=== PATIENT | male | born 1975 | race Caucasian/White ===

== ENCOUNTER 2018-03-15 02:02 | Inpatient (IN) | payer MEDICAID, OTHER ==
[~2018-03-15] VITALS: Ht 182.9 cm; Wt 79.0 kg
[2018-03-15] VITALS (8 sets, daily range): BP systolic 109–119; BP diastolic 62–79
[~2018-03-15 02:02] MED LIST: MIRT30 PO
[2018-03-15] MEDS ORDERED: GABA-531 PO (03:18)
[2018-03-15] MEDS ORDERED: RIVA20TA PO (03:18)
[2018-03-15] MEDS ORDERED: CITA-106 PO (03:18)
[2018-03-15 03:27] LABS: BASOPHILS % (AUTO) 0.5 % (0.0-2.0); EOSINOPHILS % (AUTO) 1.3 % (1.0-6.0); HEMATOCRIT 42.1 % (41-53); LYMPHOCYTES # (AUTO) 1.5 K/uL (1.0-4.8); LYMPHOCYTES % (AUTO) 20.2 % (22.0-44.0); MEAN CORPUSCULAR HGB CONC 36.7 G/dL (31.0-37.0); MEAN CORPUSCULAR VOLUME 90 fL (80-100); MONOCYTES # (AUTO) 0.5 K/uL (0.1-1.0); MONOCYTES % (AUTO) 6.6 % (2.0-9.0); NEUTROPHILS # (AUTO) 5.4 K/uL (1.8-7.7); NEUTROPHILS % (AUTO) 71.4 % (40.0-70.0); PLATELET COUNT (AUTO) 240 K/uL (150-450); RED BLOOD CELL COUNT(AUTO) 4.69 MIL/uL (4.50-5.90); RED CELL DISTRIBUTION WIDTH 13.3 % (11.5-14.5)
[2018-03-15 03:34] LABS: ANION GAP 6 mmol/L (8-16); CALCIUM, TOTAL 8.6 mg/dL (8.8-10.5); CARBON DIOXIDE 31 mmol/L (22-29); CHLORIDE 95 mmol/L (98-107); CREATININE 0.98 mg/dL (0.60-1.30); GLOMERULAR FILTR. RATE CALC > 60 mL/min (>60); GLUCOSE,RANDOM 98 mg/dL (70-110); POTASSIUM 3.4 mmol/L (3.5-5.1); SODIUM SERUM 132 mmol/L (136-145); UREA NITROGEN, BLOOD 5 mg/dL (7-18)
[2018-03-15 03:40] LABS: ALANINE AMINOTRANSFERASE 27 U/L (12-78); ALBUMIN 4.2 g/dL (3.4-5.0); ALKALINE PHOSPHATASE 95 U/L (46-116); ASPARTATE AMINOTRANSFERASE 28 U/L (15-37); BILIRUBIN,TOTAL 0.8 mg/dL (0.1-1.0)
[2018-03-15 04:43] LABS: AMPHET/METH SCREEN,URINE NEGATIVE (NEGATIVE); BARBITURATE SCREEN, URINE NEGATIVE (NEGATIVE); BENZODIAZEPINES SCREEN,URINE NEGATIVE (NEGATIVE); CANNABINOID SCREEN,URINE POSITIVE (NEGATIVE); COCAINE SCREEN,URINE NEGATIVE (NEGATIVE); METHADONE SCREEN, URINE NEGATIVE (NEGATIVE); OPIATE SCREEN,URINE NEGATIVE (NEGATIVE); PHENCYCLIDINE SCREEN,URINE NEGATIVE (NEGATIVE)
[2018-03-15] MEDS ORDERED: TRAZ-220 PO (04:49)
[2018-03-15] MEDS ORDERED: TraZODone HCL 50 MG TABLET PO ONE (05:00)
[2018-03-15 05:01] LABS: CREATINE KINASE, TOTAL ONLY 447 U/L (39-308)
[2018-03-15] MEDS ORDERED: LORazepam 2 MG TABLET PO PRN (10:15)
[2018-03-15] MEDS ORDERED: PROMETHAZINE HCL 25 MG TABLET PO PRN (11:30)
[2018-03-15] MEDS ORDERED: MAGNESIUM HYDROXIDE SUSPENSION 30 ML UDCUP PO PRN (11:30)
[2018-03-15] MEDS ORDERED: GuaiFENesin/D-METHORPHAN [SUGAR-FREE] 200-20MG/10 ML SYRUP UDCUP PO PRN (11:30)
[2018-03-15] MEDS ORDERED: TUBERCULIN, PURIFIED PROTEIN DERIVATIVE 5 TU/0.1 ML SYG ID ONE (11:30)
[2018-03-15] MEDS ORDERED: DIAZEPAM 10 MG TABLET PO PRN (11:30)
[2018-03-15] MEDS ORDERED: MAG HYDROX/AL HYDROX/SIMETH ES 30 ML SUSPENSION UDCUP PO PRN (11:30)
[2018-03-15] MEDS ORDERED: ACETAMINOPHEN 325 MG TABLET PO PRN (11:30)
[2018-03-15] MEDS ORDERED: CYANOCOBALAMIN 1,000 MCG/ML VIAL IM ONE (11:30)
[2018-03-15] MEDS ORDERED: LOPERAMIDE HCL 2 MG CAPSULE PO PRN (11:30)
[2018-03-15] MEDS: THIAMINE HCL 100 MG TABLET PO SCH (16:57)
[2018-03-15] MEDS: RIVAROXABAN 20 MG TABLET PO SCH (16:58)
[2018-03-15] MEDS: GABAPENTIN 100 MG CAPSULE PO SCH ×2 (16:58→20:16)
[2018-03-15] MEDS: HydrOXYzine PAMOATE 50 MG CAPSULE PO PRN (17:22)
[2018-03-15] MEDS: ZOLPIDEM TARTRATE 10 MG TABLET PO PRN (20:16)
[2018-03-15] MEDS: TraZODone HCL 50 MG TABLET PO SCH (20:16)
[2018-03-15] MEDS ORDERED: POTASSIUM CHLORIDE 20 MEQ ER TABLET PO ONE (20:45)
[2018-03-15] MEDS ORDERED: MIRTAZAPINE 15 MG TABLET PO SCH (21:00)
[2018-03-16] VITALS (8 sets, daily range): BP systolic 115–128; BP diastolic 60–80
[2018-03-16] MEDS ORDERED: LORazepam 2 MG TABLET PO PRN (07:00)
[2018-03-16] MEDS ORDERED: DIAZEPAM 10 MG TABLET PO PRN (07:00)
[2018-03-16 08:10] LABS: BASOPHILS % (AUTO) 0.7 % (0.0-2.0); EOSINOPHILS % (AUTO) 2.9 % (1.0-6.0); HEMATOCRIT 43.2 % (41-53); HEMOGLOBIN 15.3 g/dL (13.5-17.5); LYMPHOCYTES # (AUTO) 1.3 K/uL (1.0-4.8); LYMPHOCYTES % (AUTO) 29.8 % (22.0-44.0); MEAN CORPUSCULAR HEMOGLOBIN 32.6 pg (26.0-34.0); MEAN CORPUSCULAR HGB CONC 35.5 G/dL (31.0-37.0); MEAN CORPUSCULAR VOLUME 92 fL (80-100); MONOCYTES # (AUTO) 0.5 K/uL (0.1-1.0); MONOCYTES % (AUTO) 10.5 % (2.0-9.0); NEUTROPHILS # (AUTO) 2.5 K/uL (1.8-7.7); NEUTROPHILS % (AUTO) 56.1 % (40.0-70.0); PLATELET COUNT (AUTO) 222 K/uL (150-450); RED BLOOD CELL COUNT(AUTO) 4.71 MIL/uL (4.50-5.90); RED CELL DISTRIBUTION WIDTH 13.4 % (11.5-14.5)
[2018-03-16 08:22] LABS: PROTHROMBIN TIME 10.5 SEC (9.4-11.6)
[2018-03-16] MEDS: MULTIVITAMINS WITH MINERALS, THERAPEUTIC TABLET PO SCH (08:45)
[2018-03-16] MEDS: DIAZEPAM 10 MG TABLET PO SCH ×4 (08:45→21:11)
[2018-03-16] MEDS: DULoxetine HCL 20 MG CAPSULE PO SCH (08:45)
[2018-03-16] MEDS: THIAMINE HCL 100 MG TABLET PO SCH ×2 (08:45→16:30)
[2018-03-16] MEDS: FOLIC ACID 1 MG TABLET PO SCH (08:45)
[2018-03-16 08:46] LABS: ALANINE AMINOTRANSFERASE 30 U/L (12-78); ALBUMIN 3.6 g/dL (3.4-5.0); ALKALINE PHOSPHATASE 90 U/L (46-116); ANION GAP 6 mmol/L (8-16); ASPARTATE AMINOTRANSFERASE 30 U/L (15-37); CALCIUM, TOTAL 8.7 mg/dL (8.8-10.5); CARBON DIOXIDE 31 mmol/L (22-29); CHLORIDE 102 mmol/L (98-107); CHOL/HDL RATIO 2.8 (4.2-7.3); CHOLESTEROL 169 mg/dL (131-200); CREATININE 1.03 mg/dL (0.60-1.30); FREE T4 (FREE THYROXINE) 1.05 ng/dL (0.76-1.46); GLOMERULAR FILTR. RATE CALC > 60 mL/min (>60); GLUCOSE,RANDOM 83 mg/dL (70-110); HDL CHOLESTEROL 60 mg/dL (40-60); LDL CHOL (CALC.) 94 mg/dL (0-130); POTASSIUM 3.8 mmol/L (3.5-5.1); SODIUM SERUM 139 mmol/L (136-145); THYROID STIMULATING HORMONE 6.24 uIU/mL (0.36-3.74); TOTAL PROTEIN, SERUM 7.4 g/dL (6.4-8.2); TRIGLYCERIDES 73 mg/dL (15-150); UREA NITROGEN, BLOOD 7 mg/dL (7-18)
[2018-03-16] MEDS: GABAPENTIN 100 MG CAPSULE PO SCH ×4 (08:46→21:10)
[2018-03-16] MEDS: NALTREXONE HCL 50 MG TABLET PO SCH (08:46)
[2018-03-16] MEDS ORDERED: LORazepam 2 MG TABLET PO SCH (09:00)
[2018-03-16] MEDS: HydrOXYzine PAMOATE 50 MG CAPSULE PO PRN (11:53)
[2018-03-16] MEDS: RIVAROXABAN 20 MG TABLET PO SCH (17:06)
[2018-03-16] MEDS: TraZODone HCL 50 MG TABLET PO SCH (21:10)
[2018-03-17 01:21] VITALS: BP 103/64
[2018-03-17 08:20] VITALS: BP 114/79
[2018-03-17] MEDS: DULoxetine HCL 20 MG CAPSULE PO SCH (08:51)
[2018-03-17] MEDS: MULTIVITAMINS WITH MINERALS, THERAPEUTIC TABLET PO SCH (08:51)
[2018-03-17] MEDS: NALTREXONE HCL 50 MG TABLET PO SCH (08:51)
[2018-03-17] MEDS: THIAMINE HCL 100 MG TABLET PO SCH ×2 (08:51→16:23)
[2018-03-17] MEDS: GABAPENTIN 100 MG CAPSULE PO SCH ×4 (08:51→21:25)
[2018-03-17] MEDS: DIAZEPAM 10 MG TABLET PO SCH ×4 (08:51→21:24)
[2018-03-17] MEDS: FOLIC ACID 1 MG TABLET PO SCH (08:51)
[2018-03-17] MEDS: TraMADol HCL 50 MG TABLET PO PRN (16:23)
[2018-03-17] MEDS: RIVAROXABAN 20 MG TABLET PO SCH (16:23)
[2018-03-17 16:47] VITALS: BP 139/61
[2018-03-17] MEDS: HydrOXYzine PAMOATE 50 MG CAPSULE PO PRN (17:16)
[2018-03-17] MEDS: TraZODone HCL 100 MG TABLET PO SCH (21:25)
[2018-03-17] MEDS: ZOLPIDEM TARTRATE 10 MG TABLET PO PRN (21:25)
[2018-03-18 01:10] VITALS: BP 105/62
[2018-03-18] MEDS ORDERED: LORazepam 1 MG TABLET PO PRN (07:00)
[2018-03-18] MEDS ORDERED: DIAZEPAM 5 MG TABLET PO PRN (07:00)
[2018-03-18] MEDS ORDERED: LORazepam 1 MG TABLET PO SCH (09:00)
[2018-03-18 09:21] VITALS: BP 129/72
[2018-03-18] MEDS: THIAMINE HCL 100 MG TABLET PO SCH ×2 (10:33→18:07)
[2018-03-18] MEDS: DIAZEPAM 5 MG TABLET PO SCH ×4 (10:33→21:26)
[2018-03-18] MEDS: MULTIVITAMINS WITH MINERALS, THERAPEUTIC TABLET PO SCH (10:33)
[2018-03-18] MEDS: FOLIC ACID 1 MG TABLET PO SCH (10:33)
[2018-03-18] MEDS ORDERED: LOPERAMIDE HCL 2 MG CAPSULE PO PRN (11:30)
[2018-03-18] MEDS: NALTREXONE HCL 50 MG TABLET PO SCH (13:06)
[2018-03-18] MEDS: GABAPENTIN 100 MG CAPSULE PO SCH ×4 (13:06→21:26)
[2018-03-18] MEDS: DULoxetine HCL 20 MG CAPSULE PO SCH (13:06)
[2018-03-18] MEDS: HydrOXYzine PAMOATE 50 MG CAPSULE PO PRN (13:36)
[2018-03-18] MEDS: HALOPERIDOL 5 MG TABLET PO PRN (13:36)
[2018-03-18] MEDS: NICOTINE 21 MG/24 HOUR PATCH TD SCH (15:47)
[2018-03-18] MEDS ORDERED: TUBERCULIN, PURIFIED PROTEIN DERIVATIVE 5 TU/0.1 ML SYG ID ONE (16:15)
[2018-03-18] MEDS: TraMADol HCL 50 MG TABLET PO PRN (16:47)
[2018-03-18 17:35] VITALS: BP 139/72
[2018-03-18] MEDS: RIVAROXABAN 20 MG TABLET PO SCH (18:08)
[2018-03-18] MEDS: TraZODone HCL 100 MG TABLET PO SCH (21:26)
[2018-03-19 00:52] VITALS: BP 108/76
[2018-03-19] MEDS ORDERED: DIAZEPAM 5 MG TABLET PO PRN (07:00)
[2018-03-19] MEDS ORDERED: LORazepam 1 MG TABLET PO PRN (07:00)
[2018-03-19 08:25] VITALS: BP 122/85
[2018-03-19] MEDS: FOLIC ACID 1 MG TABLET PO SCH (08:43)
[2018-03-19] MEDS: THIAMINE HCL 100 MG TABLET PO SCH ×2 (08:43→16:34)
[2018-03-19] MEDS: DULoxetine HCL 20 MG CAPSULE PO SCH (08:43)
[2018-03-19] MEDS: NALTREXONE HCL 50 MG TABLET PO SCH (08:43)
[2018-03-19] MEDS: GABAPENTIN 100 MG CAPSULE PO SCH ×4 (08:43→20:06)
[2018-03-19] MEDS: MULTIVITAMINS WITH MINERALS, THERAPEUTIC TABLET PO SCH (08:43)
[2018-03-19] MEDS: NICOTINE 21 MG/24 HOUR PATCH TD SCH (08:44)
[2018-03-19] MEDS: HydrOXYzine PAMOATE 50 MG CAPSULE PO PRN (09:58)
[2018-03-19 10:59] VITALS: BP 139/89
[2018-03-19] MEDS: TraMADol HCL 50 MG TABLET PO PRN ×2 (11:00→17:17)
[2018-03-19 16:29] VITALS: BP 120/84
[2018-03-19] MEDS: RIVAROXABAN 20 MG TABLET PO SCH (16:34)
[2018-03-19] MEDS: TraZODone HCL 100 MG TABLET PO SCH (20:06)
[2018-03-19] MEDS: ZOLPIDEM TARTRATE 10 MG TABLET PO PRN (20:45)
[2018-03-20 05:55] VITALS: BP 112/80
[2018-03-20 08:26] VITALS: BP 127/74
[2018-03-20] MEDS: THIAMINE HCL 100 MG TABLET PO SCH (08:59)
[2018-03-20] MEDS: DULoxetine HCL 20 MG CAPSULE PO SCH (08:59)
[2018-03-20] MEDS: GABAPENTIN 100 MG CAPSULE PO SCH ×2 (08:59→12:47)
[2018-03-20] MEDS: FOLIC ACID 1 MG TABLET PO SCH (09:00)
[2018-03-20] MEDS: NALTREXONE HCL 50 MG TABLET PO SCH (09:00)
[2018-03-20] MEDS: MULTIVITAMINS WITH MINERALS, THERAPEUTIC TABLET PO SCH (09:00)
[2018-03-20] MEDS: TraMADol HCL 50 MG TABLET PO PRN (09:16)
[2018-03-20] MEDS: NICOTINE 21 MG/24 HOUR PATCH TD SCH (09:17)
[2018-03-20] MEDS: HALOPERIDOL 5 MG TABLET PO PRN (10:24)
[2018-03-20] MEDS ORDERED: TRAZ-220 PO (15:51)
[2018-03-20] MEDS ORDERED: GABA-529 PO (15:51)
[2018-03-20] MEDS ORDERED: DULO20CA30 PO (15:52)
[2018-03-20] MEDS ORDERED: NALT50TA6 PO (15:52)
[2018-03-20] MEDS ORDERED: RIVA20TA PO (16:07)
[2018-03-20 16:20] VITALS: BP 120/84
== END 2018-03-20 16:44 | disposition home or self-care (01) | DRG 750 ==
LOC: EMS 02:03 → B2S 10:52
PROVIDERS: ADMIT Psychiatry & Neurology Psychiatry; ATTEND Psychiatry & Neurology Psychiatry
DX: F25.1 Schizoaffective disorder, depressive type (principal); R45.851 Suicidal ideations; Z91.19 Patient's noncompliance with other medical treatment and regimen; F10.20 Alcohol dependence, uncomplicated; F12.90 Cannabis use, unspecified, uncomplicated; F41.9 Anxiety disorder, unspecified; F17.210 Nicotine dependence, cigarettes, uncomplicated; Z79.01 Long term (current) use of anticoagulants; Z79.899 Other long term (current) drug therapy; Z86.711 Personal history of pulmonary embolism; Z28.21 Immunization not carried out because of patient refusal
CPT/HCPCS: 84439; 84443; 85379; 86592; 93005; G0480; J3420